=== PATIENT | female | born 1975 | race Caucasian/White ===

== ENCOUNTER 2016-11-22 19:50 | Emergency (ER) | payer OTHER ==
[~2016-11-22] VITALS: Ht 162.6 cm; Wt 123.1 kg
[2016-11-22] MEDS ORDERED: METF10002 PO (20:34)
[2016-11-22] MEDS ORDERED: PREN-3 PO (20:34)
[2016-11-22 20:59] LABS: HEMATOCRIT 42.5 % (34.6-47.8); HEMOGLOBIN 14.1 g/dL (11.7-16.4); WHITE BLOOD COUNT 14.7 x10^3/uL (3.4-10)
[2016-11-22 21:11] LABS: BLOOD UREA NITROGEN 11 mg/dL (7-18)
[2016-11-22] MEDS ORDERED: RHOGAM FROM BLOOD BANK 1 NOTE EA IM/IV ONE (22:30)
[2016-11-23 00:06] VITALS: BP 110/77
[2016-11-23 00:24] VITALS: BP 119/74
== END 2016-11-23 00:35 | disposition home or self-care (01) ==
LOC: ED 23:59
DX: O20.0 Threatened abortion (principal)
CPT/HCPCS: 36415; 36430; 76801; 80048; 82040; 84702; 85025; 86850; 86870; 86900; 99285; J2790

== ENCOUNTER 2017-05-14 02:44 | Outpatient (CLI) | payer OTHER ==
[~2017-05-14] VITALS: Ht 162.6 cm; Wt 131.4 kg
[~2017-05-14 02:44] MED LIST: METF10002 PO; PREN-3 PO
[2017-05-14 03:25] VITALS: BP 139/75
[2017-05-14 03:29] LABS: MICROSCOPIC INDICATED
== END 2017-05-14 04:50 | disposition home or self-care (01) ==
LOC: LDOP 02:44
PROVIDERS: ATTEND Obstetrics & Gynecology
DX: O26.893 Other specified pregnancy related conditions, third trimester (principal); R10.9 Unspecified abdominal pain; M54.9 Dorsalgia, unspecified; Z3A.37 37 weeks gestation of pregnancy
CPT/HCPCS: 59025; 81001; 87086; 99211; G0463

== ENCOUNTER 2017-05-16 17:28 | Inpatient (IN) | payer OTHER ==
[~2017-05-16] VITALS: Ht 162.6 cm; Wt 132.3 kg
[2017-05-16] MEDS ORDERED: LACTATED RINGERS 1,000 ML IV SCH ×3 (17:56→21:30)
[2017-05-16] MEDS ORDERED: AZITHROMYCIN 500 MG in SODIUM CHLORIDE 0.9% 250 ML IV STA (17:56)
[2017-05-16] MEDS ORDERED: OXYTOCIN 30U/ 0.9% NaCL 500ML 500 ML IV SCH ×2 (17:56→21:30)
[2017-05-16] MEDS ORDERED: LACTATED RINGERS 1,000 ML IVBOLUS ONE (18:00)
[2017-05-16] MEDS ORDERED: OXYTOCIN 30U/ 0.9% NaCL 500ML 500 ML ONE (18:03)
[2017-05-16] MEDS ORDERED: MISOPROSTOL 200 MCG TABLET ONE (18:03)
[2017-05-16 18:04] VITALS: BP 141/87
[2017-05-16] MEDS ORDERED: METOCLOPRAMIDE 5 MG/ML, 2ML ONE (18:07)
[2017-05-16] MEDS ORDERED: SODIUM CITRATE/CITRIC ACID 30 ML UDC ONE (18:07)
[2017-05-16] MEDS ORDERED: NEWBORN KIT ONE (18:07)
[2017-05-16] MEDS ORDERED: PLEASE ENTER HEIGHT AND WEIGHT MC SCH (18:30)
[2017-05-16 18:44] LABS: BASOPHILS # (AUTO) 0.04 x10^3/uL (0-0.1); BASOPHILS % (AUTO) 0 % (0-1); EOSINOPHILS # (AUTO) 0.13 x10^3/uL (0-0.4); EOSINOPHILS % (AUTO) 1 % (1-7); LYMPHOCYTES # (AUTO) 2.26 x10^3/uL (1-3.4); LYMPHOCYTES % (AUTO) 16 % (22-44); MD NO; MEAN CORPUSCULAR HEMOGLOBIN 28.2 pg (27.0-34.8); MEAN CORPUSCULAR HGB CONC 33.2 g/dL (32.4-35.8); MEAN PLATELET VOLUME 8.3 fL (7.4-10.4); MONOCYTES # (AUTO) 1.13 x10^3/uL (0.2-0.8); MONOCYTES % (AUTO) 8 % (2-9); NEUTROPHILS # (AUTO) 10.61 x10^3/uL (1.8-6.8); NEUTROPHILS % (AUTO) 75 % (42-75); PLATELET COUNT 290 x10^3/uL (130-400); RED BLOOD COUNT 4.91 x10^6/uL (3.82-5.3); RED CELL DISTRIBUTION WIDTH 14.1 % (9.6-15.2)
[2017-05-16] MEDS ORDERED: OXYcodone 5 MG/5 ML ORAL.SOL UDC PO PRN (19:00)
[2017-05-16] MEDS ORDERED: ONDANSETRON 2MG/ML, 2ML IVPush PRN (19:00)
[2017-05-16] MEDS ORDERED: morphine SULFATE 10 MG/ML, 1ML IV PRN (19:00)
[2017-05-16] MEDS ORDERED: FENTANYL PF 100 MCG/2ML IV PRN (19:00)
[2017-05-16] MEDS ORDERED: EPHEDRINE 50 MG/ML, 1ML IVPush PRN (19:00)
[2017-05-16] MEDS ORDERED: MEPERIDINE/PF 25MG/0.5ML IVPush PRN (19:00)
[2017-05-16] MEDS ORDERED: POLY17PO5 PO (19:00)
[2017-05-16] MEDS ORDERED: EPINEPHRINE 1 MG/ML, 1ML ONE (19:27)
[2017-05-16] MEDS ORDERED: METOCLOPRAMIDE 5 MG/ML, 2ML IV ONE (19:30)
[2017-05-16] MEDS ORDERED: SODIUM CITRATE/CITRIC ACID 30 ML UDC PO ONE (19:30)
[2017-05-16] MEDS ORDERED: EPHEDRINE 50 MG/ML, 1ML ONE (19:46)
[2017-05-16] MEDS ORDERED: CEFAZOLIN 1,000 MG ONE (19:46)
[2017-05-16] MEDS: KETOROLAC 30 MG/1 ML IV SCH (20:30)
[2017-05-16 20:38] LABS: MICROSCOPIC NOT IND
[2017-05-16 20:47] LABS: PROTEIN/CREATININE RATIO,URINE < 130 (0-200); TOTAL PROTEIN,URINE RANDOM < 5 mg/dL (0-12)
[2017-05-16] MEDS ORDERED: BISACODYL 10 MG SUPP PR PRN (21:30)
[2017-05-16] MEDS ORDERED: MISOPROSTOL 200 MCG TABLET PR PRN (21:30)
[2017-05-16] MEDS ORDERED: SIMETHICONE 80 MG CHEW TAB PO PRN (21:30)
[2017-05-16] MEDS ORDERED: ONDANSETRON 2MG/ML, 2ML IV PRN (21:30)
[2017-05-16] MEDS: ACETAMINOPHEN 325 MG TABLET PO SCH (21:30)
[2017-05-16] MEDS ORDERED: morphine SULFATE 10 MG/ML, 1ML IVPush PRN ×2 (21:30)
[2017-05-16] MEDS: LACTATED RINGERS 1,000 ML IV SCH (21:30)
[2017-05-16] MEDS ORDERED: CALCIUM CARBONATE 500 MG TAB.CHEW PO PRN (21:30)
[2017-05-16 22:11] LABS: ALANINE AMINOTRANSFERASE 11 U/L (12-78); ALBUMIN 2.2 g/dL (3.4-5.0); ANION GAP 12 mmol/L (5-15); CALCIUM 8.2 mg/dL (8.5-10.1); CHLORIDE 111 mmol/L (98-107); CREATININE 0.67 mg/dL (0.55-1.02)
[2017-05-16 22:18] LABS: ALKALINE PHOSPHATASE 84 U/L (45-117); BILIRUBIN,TOTAL 0.2 mg/dL (0.2-1.0); TOTAL PROTEIN 5.5 g/dL (6.4-8.2)
[2017-05-16 22:23] LABS: BILIRUBIN, DIRECT < 0.1 mg/dL (0.1-0.2)
[2017-05-16 23:15] VITALS: BP 135/84
[2017-05-17] MEDS: OXYcodone IR 5MG TABLET PO PRN ×6 (00:42→23:26)
[2017-05-17 00:45] VITALS: BP 131/79
[2017-05-17] MEDS: ACETAMINOPHEN 325 MG TABLET PO SCH ×4 (03:34→21:18)
[2017-05-17] MEDS: KETOROLAC 30 MG/1 ML IV SCH ×3 (03:34→14:56)
[2017-05-17 03:52] VITALS: BP 136/81
[2017-05-17 05:24] LABS: BASOPHILS # (AUTO) 0.02 x10^3/uL (0-0.1); BASOPHILS % (AUTO) 0 % (0-1); EOSINOPHILS # (AUTO) 0.06 x10^3/uL (0-0.4); EOSINOPHILS % (AUTO) 0 % (1-7); LYMPHOCYTES # (AUTO) 2.59 x10^3/uL (1-3.4); LYMPHOCYTES % (AUTO) 15 % (22-44); MD NO; MEAN CORPUSCULAR HEMOGLOBIN 28.4 pg (27.0-34.8); MEAN CORPUSCULAR HGB CONC 33.5 g/dL (32.4-35.8); MEAN CORPUSCULAR VOLUME 84.9 fL (80-100); MEAN PLATELET VOLUME 8.5 fL (7.4-10.4); MONOCYTES # (AUTO) 1.09 x10^3/uL (0.2-0.8); MONOCYTES % (AUTO) 6 % (2-9); NEUTROPHILS # (AUTO) 13.71 x10^3/uL (1.8-6.8); NEUTROPHILS % (AUTO) 79 % (42-75); PLATELET COUNT 252 x10^3/uL (130-400); RED BLOOD COUNT 3.84 x10^6/uL (3.82-5.3); RED CELL DISTRIBUTION WIDTH 13.9 % (9.6-15.2)
[2017-05-17] MEDS: LACTATED RINGERS 1,000 ML IV SCH ×2 (05:30→06:50)
[2017-05-17] MEDS: DOCUSATE 100 MG CAPSULE PO PRN ×2 (09:37→21:19)
[2017-05-17] MEDS: PRENATAL VIT/IRON/FA 1 EACH TABLET PO SCH (09:37)
[2017-05-17 10:10] VITALS: BP 132/82
[2017-05-17 14:47] VITALS: BP 116/76
[2017-05-17] MEDS ORDERED: OXYcodone IR 5MG TABLET ONE (14:53)
[2017-05-17] MEDS: IBUPROFEN 600 MG TABLET PO SCH (21:18)
[2017-05-17 21:20] VITALS: BP 118/75
[2017-05-18] MEDS: IBUPROFEN 600 MG TABLET PO SCH ×4 (03:30→21:43)
[2017-05-18] MEDS: ACETAMINOPHEN 325 MG TABLET PO SCH ×4 (03:31→21:43)
[2017-05-18] MEDS: OXYcodone IR 5MG TABLET PO PRN ×4 (03:31→23:40)
[2017-05-18] MEDS: PRENATAL VIT/IRON/FA 1 EACH TABLET PO SCH (07:55)
[2017-05-18] MEDS: DOCUSATE 100 MG CAPSULE PO PRN ×2 (07:55→19:06)
[2017-05-18 08:00] VITALS: BP 125/74
[2017-05-18 19:25] VITALS: BP 138/80
[2017-05-19 00:30] VITALS: BP 126/84
[2017-05-19] MEDS: IBUPROFEN 600 MG TABLET PO SCH ×2 (03:34→09:39)
[2017-05-19] MEDS: OXYcodone IR 5MG TABLET PO PRN ×2 (03:35→07:43)
[2017-05-19] MEDS: ACETAMINOPHEN 325 MG TABLET PO SCH ×2 (03:35→09:39)
[2017-05-19] MEDS: PRENATAL VIT/IRON/FA 1 EACH TABLET PO SCH (07:43)
[2017-05-19] MEDS: DOCUSATE 100 MG CAPSULE PO PRN (07:43)
[2017-05-19 09:09] VITALS: BP 142/89
[2017-05-19] MEDS ORDERED: HYDR-3240 PO (09:32)
[2017-05-19] MEDS ORDERED: DOCU-131 PO (09:32)
[2017-05-19] MEDS ORDERED: IBUP-1222 PO (09:32)
== END 2017-05-19 13:25 | disposition home or self-care (01) | DRG 765 ==
LOC: LDOP 17:28 → LDIP 18:25 → 2NW 22:53
PROVIDERS: ADMIT Obstetrics & Gynecology; ATTEND Obstetrics & Gynecology
PROC: 10D00Z1 Extraction of Products of Conception, Low, Open Approach (ICD-10-PCS; principal; 2017-05-16)
DX: O32.1XX0 Maternal care for breech presentation, not applicable or unspecified (principal); Z68.43 Body mass index [BMI] 50.0-59.9, adult; E66.01 Morbid (severe) obesity due to excess calories; O99.284 Endocrine, nutritional and metabolic diseases complicating childbirth; O99.214 Obesity complicating childbirth; Z37.0 Single live birth; Z3A.37 37 weeks gestation of pregnancy; O32.9XX0 Maternal care for malpresentation of fetus, unspecified, not applicable or unspecified; O42.02 Full-term premature rupture of membranes, onset of labor within 24 hours of rupture
CPT/HCPCS: 36415; 80053; 81003; 82248; 82570; 84156; 84550; 85025; 86850; 86900; J0456; J0690; J1885; J2590; J2765; J7050; J7120